=== PATIENT | female | born 1955 | race Caucasian/White ===

== ENCOUNTER → 2017-10-25 | Outpatient (CLI) | payer OTHER ==
[~2017-10-25] MED LIST: ATOR40TA PO; Cipro500 MG PO; Flomax0.4 MG PO; Hydrocodone-Ap1 EA23 PO; IBUP800 PO; METF500C PO; Percocet 5-3251 EACH PO; SULTRIDS PO; TAMS.4ER PO
== END | disposition home or self-care (01) ==
LOC: LAB SHORT 10:12 → PLD 10:12
DX: D48.5 Neoplasm of uncertain behavior of skin (principal)
CPT/HCPCS: 88305

== ENCOUNTER 2018-03-27 06:36 | Day surgery (SDC) | payer OTHER ==
[~2018-03-27] VITALS: Ht 167.6 cm; Wt 86.0 kg
[~2018-03-27 06:36] MED LIST changes: +Amaryl1 MG PO; +Crestor20 MG PO; +Glucophage1000 MG PO; +MELO7.5 PO
--- NOTE | 2018-03-27 08:34 | NUR ---
03/27/18 0834 Sandy Buchanan S 0823 OBSERVED SPLOTCHY PINK RASH ON RIGHT HIP WHILE TECH DOING PRESSURE. DR. SOLANO.
== END 2018-03-27 09:14 | disposition home or self-care (01) ==
LOC: ORSCSDS 06:36
PROVIDERS: Internal Medicine Gastroenterology
PROC: 0DBL8ZX Excision of Transverse Colon, Via Natural or Artificial Opening Endoscopic, Diagnostic (ICD-10-PCS; principal; 2018-03-27 08:00)
PROC: 0DBN8ZX Excision of Sigmoid Colon, Via Natural or Artificial Opening Endoscopic, Diagnostic (ICD-10-PCS; principal; 2018-03-27 08:00)
DX: Z12.11 Encounter for screening for malignant neoplasm of colon (principal); D12.3 Benign neoplasm of transverse colon; K63.5 Polyp of colon; E78.00 Pure hypercholesterolemia, unspecified; E11.9 Type 2 diabetes mellitus without complications; Z79.84 Long term (current) use of oral hypoglycemic drugs; Z79.899 Other long term (current) drug therapy
CPT/HCPCS: 82947; 88305; J0330; J1980; J2405; J7120

== ENCOUNTER → 2021-02-10 | Outpatient (CLI) | payer MEDICARE | END | disposition home or self-care (01) | LOC: LAB SHORT 10:27 | DX: L82.1 Other seborrheic keratosis (principal); L57.8 Other skin changes due to chronic exposure to nonionizing radiation; B88.0 Other acariasis | CPT/HCPCS: 88305 ==

== ENCOUNTER → 2021-08-29 | Outpatient (CLI) | payer MEDICARE | END | disposition home or self-care (01) | LOC: PLD 11:04 → LAB SHORT 11:04 | DX: D48.5 Neoplasm of uncertain behavior of skin (principal) | CPT/HCPCS: 88305 ==

== ENCOUNTER 2021-09-08 09:43 | Observation (INO) | payer MEDICARE ==
[~2021-09-08] VITALS: Ht 167.6 cm; Wt 80.5 kg
[2021-09-08 10:34] LABS: BASOPHILS ABSOLUTE AUTO 0.04 K/mm3 (0.00-0.23); BASOPHILS PERCENT AUTO 1 % (0-2); EOSINOPHILS ABSOLUTE AUTO 0.21 K/mm3 (0.00-0.68); EOSINOPHILS PERCENT AUTO 4 % (0-6); Hematocrit 34.6 % (33.0-51.0); Hemoglobin 11.8 g/dL (11.5-16.0); IMMATURE GRAN ABSOLUTE AUTO 0.01 K/mm3 (0.00-0.10); IMMATURE GRAN PERCENT AUTO 0 % (0-1); LYMPHOCYTES ABSOLUTE AUTO 1.67 K/mm3 (0.84-5.20); LYMPHOCYTES PERCENT AUTO 30 % (21-46); MONOCYTES PERCENT AUTO 11 % (4-13); Mean Corpuscular HGB 27.9 pg (26.0-34.0); Mean Corpuscular HGB Conc 34.1 g/dL (31.5-36.5); Mean Corpuscular Volume 82 fL (80-100); Mean Platelet Volume 9.4 fL (9.1-12.4); NEUTROPHILS ABSOLUTE AUTO 2.97 K/mm3 (1.96-9.15); NEUTROPHILS PERCENT AUTO 54 % (41-73); Platelet Count 234 K/mm3 (150-400); RDW Coefficient Variation 11.8 % (11.7-14.2); RDW Standard Deviation 34.9 fL (35.1-46.3); Red Blood Cell Count 4.23 M/mm3 (3.80-5.20)
[2021-09-08 10:58] LABS: Albumin, Blood 3.3 g/dL (3.4-5.0); Albumin/Globulin Ratio 1.1 (0.8-1.8); Bilirubin, Total 0.4 mg/dL (0.1-1.0); Bun/Creatinine Ratio 30.2 (12.0-20.0); Calcium, Blood 9.2 mg/dL (8.5-10.1); Creatinine, Blood 0.46 mg/dL (0.40-1.00); Globulin, Blood 3.1 g/dL (2.2-4.0); Potassium, Blood 3.7 mmol/L (3.5-5.5); Total Protein, Blood 6.4 g/dL (6.4-8.2)
[2021-09-08 11:30] LABS: Influenza A, PCR NEGATIVE (NEGATIVE); Influenza B, PCR NEGATIVE (NEGATIVE); Resp Syncytial Virus, PCR NEGATIVE (NEGATIVE); SARS-Cov-2 (COVID-19) PCR, MMC NEGATIVE (NEGATIVE)
--- NOTE | 2021-09-08 15:21 | NUR ---
ADMIT NOTE PATIENT ADMITTED FROM ER TO ROOM 305. PATIENT SETTLED INTO ROOM. PATIENT ORIENTED TO CALL LIGHT AND TV CONTROLS. MED REC DONE. ADMISSION COMPLETE. TALKED TO JEREMIAH IN NUCLEAR MEDICINE, STRESS TEST TOMORROW MORNING. NPO ORDERS. GAVE PATIENT SNACK.
--- NOTE | 2021-09-08 18:21 | NUR ---
SHIFT SUMMARY PATIENT DENIES PAIN, NAUSEA, AND SHORTNESS OF BREATH AT REST. PATIENT IS SOB WITH ACTIVITY. PATIENT IS SBA TO THE BATHROOM. PATIENT HAD VISITORS TODAY. PATIENT TO DO A STRESS TEST TOMORROW. PATIENT AWARE. ECHO COMPLETE. US OF NECK TO BE DONE STILL. PATIENT IS EATING AND DRINKING WELL. TELE RUNNING SR AT 82. PATIENT IS PLEASANT AND COOPERATIVE WITH CARE.
[2021-09-08 19:32] LABS: Free Thyroxine 2.09 ng/dL (0.70-1.60); Triiodothyronine, Free 7.24 pg/mL (2.18-3.98)
--- NOTE | 2021-09-09 03:57 | NUR ---
SHIFT SUMMARY PT HAD NO ACUTE CHANGES TO STATUS. PT SLEEPING OFF AND ON DURING THE NIGHT. PT WOKE WITH A HEADACHE AND WAS MEDICATED PER EMAR. PT GETS UP TO RESTROOM WITH NO ASSISTANCE. PT DID NOT SEEM SOB OR DIZZY AT ANY TIME WHILE UP TO RESTROOM. PT CONTINUES TO BE ON TELEMETRY. SINUS IN THE 70'S PER MONITOR. PT HAS CALL LIGHT WITHIN HER REACH AND HAS NO CURRENT COMPLAINTS.
[2021-09-09] MEDS ORDERED: LISI5 PO (18:23)
[2021-09-09] MEDS ORDERED: METHI10 PO (18:24)
[2021-09-09] MEDS ORDERED: Metoprolol Succ25 MG PO (18:24)
--- NOTE | 2021-09-09 19:17 | NUR ---
DISCHARGE PATIENT TRANSPORTED VIA WHEELCHAIR TO PRIVATE VEHICLE. DISCHARGE INSTRUCTIONS EXPLAINED TO PATIENT. PATIENT STATED UNDERSTANDING. PACKET SENT WITH PATIENT. BELONGINGS SENT WITH PATIENT. IV REMOVED WITHOUT DIFFICULTY BY LAUREN. TELE REMOVED WITHOUT DIFFICULTY. MEDICATIONS FAXED TO PREFERRED PHARMACY. [facility] TO SCHEDULE FOLLOW UP APPOINTMENT. PATIENT INFORMED OF NEED FOR OUTPATIENT THYROID SCAN.
== END 2021-09-09 18:49 | disposition home or self-care (01) ==
LOC: ER 09:43 → MEDS 09:44
PROVIDERS: Emergency Medicine; ADMIT Family Medicine
DX: E05.20 Thyrotoxicosis with toxic multinodular goiter without thyrotoxic crisis or storm (principal); E06.9 Thyroiditis, unspecified; E11.9 Type 2 diabetes mellitus without complications; M51.36 Other intervertebral disc degeneration, lumbar region; I11.0 Hypertensive heart disease with heart failure; I50.30 Unspecified diastolic (congestive) heart failure; E78.5 Hyperlipidemia, unspecified; Z88.5 Allergy status to narcotic agent; Z20.822 Contact with and (suspected) exposure to COVID-19
CPT/HCPCS: 0241U; 36415; 71045; 76536; 78452; 80053; 83880; 84439; 84443; 84481; 84484; 85025; 93005; 93010; 93017; 93306; 99285-25; A9270; A9500; J0706; J1650; J2785

== ENCOUNTER 2021-09-14 13:40 | Emergency (ER) | payer MEDICARE ==
[~2021-09-14] VITALS: Ht 167.6 cm; Wt 81.2 kg
[~2021-09-14 13:40] MED LIST changes: +LISI5 PO; +METHI10 PO; +Metoprolol Succ25 MG PO
[2021-09-14 14:22] LABS: BASOPHILS ABSOLUTE AUTO 0.05 K/mm3 (0.00-0.23); BASOPHILS PERCENT AUTO 1 % (0-2); EOSINOPHILS ABSOLUTE AUTO 0.27 K/mm3 (0.00-0.68); EOSINOPHILS PERCENT AUTO 4 % (0-6); Hematocrit 37.3 % (33.0-51.0); Hemoglobin 12.8 g/dL (11.5-16.0); IMMATURE GRAN ABSOLUTE AUTO 0.01 K/mm3 (0.00-0.10); IMMATURE GRAN PERCENT AUTO 0 % (0-1); LYMPHOCYTES ABSOLUTE AUTO 1.88 K/mm3 (0.84-5.20); LYMPHOCYTES PERCENT AUTO 28 % (21-46); MONOCYTES ABSOLUTE AUTO 0.55 K/mm3 (0.16-1.47); MONOCYTES PERCENT AUTO 8 % (4-13); Mean Corpuscular HGB 27.9 pg (26.0-34.0); Mean Corpuscular HGB Conc 34.3 g/dL (31.5-36.5); Mean Corpuscular Volume 81 fL (80-100); Mean Platelet Volume 9.6 fL (9.1-12.4); NEUTROPHILS ABSOLUTE AUTO 3.97 K/mm3 (1.96-9.15); NEUTROPHILS PERCENT AUTO 59 % (41-73); Platelet Count 245 K/mm3 (150-400); RDW Coefficient Variation 11.8 % (11.7-14.2); RDW Standard Deviation 34.6 fL (35.1-46.3); Red Blood Cell Count 4.58 M/mm3 (3.80-5.20); White Blood Cell Count 6.73 K/mm3 (4.00-11.30)
[2021-09-14 14:37] LABS: Albumin, Blood 3.5 g/dL (3.4-5.0); Albumin/Globulin Ratio 1.1 (0.8-1.8); Bilirubin, Total 0.4 mg/dL (0.1-1.0); Bun/Creatinine Ratio 34.3 (12.0-20.0); Calcium, Blood 9.6 mg/dL (8.5-10.1); Creatinine, Blood 0.47 mg/dL (0.40-1.00); Globulin, Blood 3.1 g/dL (2.2-4.0); Total Protein, Blood 6.6 g/dL (6.4-8.2)
[2021-09-14 14:40] LABS: Source, Urine Clean Catch
[2021-09-14 15:39] LABS: Appearance, Urine Clear (Clear); Bilirubin, Urine Neg (Neg); Blood, Urine 4+ (Neg); Glucose Qualitative, Urine Neg (Neg); Ketones, Urine Neg (Neg); Leukocyte Esterase, Urine Neg (Neg); Nitrite, Urine Neg (Neg); Protein, Urine Neg (Neg); Urobilinogen, Urine NORM (Normal)
[2021-09-14 15:46] LABS: Color, Urine Pale Yellow (P-Yellow)
[2021-09-14 16:05] LABS: Bacteria Rare /hpf; Squamous Epithelial Cells Rare /hpf (Few); Transitional Epithelial Cells Few /hpf (0-Rare); White Blood Cells, Urine 0-2 /hpf (0-5)
[2021-09-14] MEDS ORDERED: TAMS.4ER PO (17:22)
== END 2021-09-14 17:38 | disposition home or self-care (01) ==
LOC: ER 13:40
PROVIDERS: Emergency Medicine
DX: N13.2 Hydronephrosis with renal and ureteral calculous obstruction (principal); E78.5 Hyperlipidemia, unspecified; E05.00 Thyrotoxicosis with diffuse goiter without thyrotoxic crisis or storm; E11.9 Type 2 diabetes mellitus without complications; Z79.84 Long term (current) use of oral hypoglycemic drugs; Z88.5 Allergy status to narcotic agent; Z79.899 Other long term (current) drug therapy
CPT/HCPCS: 36415; 74176; 80053; 81001; 83690; 85025; J7030

== ENCOUNTER → 2021-12-21 | Outpatient (CLI) | payer MEDICARE ==
[2021-12-21 13:35] LABS: BASOPHILS ABSOLUTE AUTO 0.05 K/mm3 (0.00-0.23); BASOPHILS PERCENT AUTO 1 % (0-2); EOSINOPHILS ABSOLUTE AUTO 0.11 K/mm3 (0.00-0.68); EOSINOPHILS PERCENT AUTO 2 % (0-6); Hematocrit 38.1 % (33.0-51.0); Hemoglobin 13.1 g/dL (11.5-16.0); IMMATURE GRAN ABSOLUTE AUTO 0.01 K/mm3 (0.00-0.10); IMMATURE GRAN PERCENT AUTO 0 % (0-1); LYMPHOCYTES ABSOLUTE AUTO 1.56 K/mm3 (0.84-5.20); LYMPHOCYTES PERCENT AUTO 25 % (21-46); MONOCYTES ABSOLUTE AUTO 0.51 K/mm3 (0.16-1.47); MONOCYTES PERCENT AUTO 8 % (4-13); Mean Corpuscular HGB 28.5 pg (26.0-34.0); Mean Corpuscular HGB Conc 34.4 g/dL (31.5-36.5); Mean Corpuscular Volume 83 fL (80-100); Mean Platelet Volume 9.2 fL (9.1-12.4); NEUTROPHILS ABSOLUTE AUTO 4.03 K/mm3 (1.96-9.15); NEUTROPHILS PERCENT AUTO 64 % (41-73); Platelet Count 229 K/mm3 (150-400); RDW Coefficient Variation 13.9 % (11.7-14.2); RDW Standard Deviation 41.3 fL (35.1-46.3); Red Blood Cell Count 4.59 M/mm3 (3.80-5.20); White Blood Cell Count 6.27 K/mm3 (4.00-11.30)
[2021-12-21 13:53] LABS: Alanine Aminotransfer (ALT/SGP 32 U/L (12-78); Albumin, Blood 3.8 g/dL (3.4-5.0); Albumin/Globulin Ratio 1.2 (0.8-1.8); Alk Phos 54 U/L (40-126); Anion Gap 7 mmol/L (6-16); Aspartate Aminotrans (AST/SGOT 15 U/L (12-37); Bilirubin, Total 0.4 mg/dL (0.1-1.0); Blood Urea Nitrogen 13 mg/dL (8-24); Bun/Creatinine Ratio 18.3 (12.0-20.0); CO2, Blood 29 mmol/L (21-32); Calcium, Blood 9.3 mg/dL (8.5-10.1); Chloride, Blood 106 mmol/L (98-108); Creatinine, Blood 0.71 mg/dL (0.40-1.00); Free Thyroxine 1.13 ng/dL (0.70-1.60); Globulin, Blood 3.1 g/dL (2.2-4.0); Glomerular Filtration Rate 93 (60-); Glucose, Blood 159 mg/dL (70-99); Potassium, Blood 4.1 mmol/L (3.5-5.5); Sodium, Blood 142 mmol/L (136-145); Total Protein, Blood 6.9 g/dL (6.4-8.2)
[2021-12-21 13:54] LABS: Thyroid Stimulating Hormone <0.007 uIU/mL (0.360-4.800)
== END | disposition home or self-care (01) ==
LOC: LAB 13:30 → LAB SHORT 13:30
PROVIDERS: Chiropractor
DX: E05.00 Thyrotoxicosis with diffuse goiter without thyrotoxic crisis or storm (principal); R06.09 Other forms of dyspnea
CPT/HCPCS: 80053; 84439; 84443; 85025

== ENCOUNTER 2022-12-13 08:20 | Day surgery (SDC) | payer MEDICARE ==
[~2022-12-13] VITALS: Ht 167.6 cm; Wt 75.9 kg
[2022-12-13] VITALS (16 sets, daily range): BP systolic 90–127; BP diastolic 42–91
[~2022-12-13 08:20] MED LIST changes: +ASPI81CH PO; +ESCI20 PO
--- NOTE | 2022-12-13 09:56 | NUR ---
PRE-OP NOTE PT A&OX4, BREATHING RA, NO COMPLAINTS, DAUGHTER AT BEDSIDE. PT BELONGINGS STORED BELOW STRETCHER, GLASSES TO PACU. PT HAS WEDDING RING IN PLACE THAT DOES NOT COME OFF- RELEASE SIGNED. Patient confirms NPO status and agrees with scheduled surgery.PT AMBULATES UNSTEADLY C CANE. Pre-Op teaching done. Pt verbalizes understanding.
--- NOTE | 2022-12-13 14:09 | NUR ---
PATIENT ARRIVED FROM PACU TODAY. POD 0 LEFT TOTAL HIP PATIENT IS DROWSY BUT IS A&OX4 AND RESPONDS TO VERBAL STIMULI. VS ARE WNL AND IS ON RA. HER LEFT HIP HAS X3 GAUZE WITH TAPE THAT ARE C/D/I. SHE HAD A SPINAL DURING THE PROCEDURE BUT ARRIVED TO THE FLOOR WITH FULL SENSATION AND DENIES NUMBNESS AND TINGLING THROUGHOUT. POLAR PACK IN PLACE ON LEFT HIP. DAUGHTER AT BEDSIDE. CALL LIGHT WITHIN REACH.
--- NOTE | 2022-12-13 17:00 | NUR ---
SHIFT SUMMARY: POD 0 LEFT TOTAL HIP- POSTERIOR PATIENT IS A&OX4. VS ARE WNL AND IS ON RA. PAIN IS MANAGED WITH PO TYLENOL AND IV TORADOL. HER LEFT HIP HAS X3 GAUZE WITH TAPE THAT ARE C/D/I. SHE DENIES NUMBNESS OR TINGLING THROUGHOUT ALL EXTREMITIES. CAN MOVE ALL FINGERS AND TOES WHEN ASKED. SHE IS TOLERATING PO INTAKE. PATIENT WAS ABLE TO WORK WITH PHYSICAL THERAPY ONCE THIS SHIFT. PATIENT IS IN THE RECLINER WITH LEGS ELEVATED AND POLAR PACK IN PLACE. CALL LIGHT WITHIN REACH.
[2022-12-14 00:19] VITALS: BP 102/46
--- NOTE | 2022-12-14 05:13 | NUR ---
SHIFT SUMMARY POD1, L JASWINDER W/ POSTERIOR PRECAUTIONS, 3 GAUZE/ PRESSURE TAPE DRESSINGS C/D/I. IV TO R FA SL, PT A&OX4, PLEASANT AND COOPERATIVE. UP TO BATHROOM X2 THIS SHIFT W/ FWW AND STAFF ASSIST. PT DENIES PAIN T/O SHIFT, ADULT BRIEFS PLACED PER PT REQUEST FOR URGENCY INCONTINENCE. NO ACUTE CHANGES THIS SHIFT, PT REPORTS NO PAIN. CALL LIGHT W/IN REACH
[2022-12-14 05:21] LABS: BASOPHILS ABSOLUTE AUTO 0.02 K/mm3 (0.00-0.23); BASOPHILS PERCENT AUTO 0 % (0-2); EOSINOPHILS PERCENT AUTO 0 % (0-6); Hematocrit 30.1 % (33.0-51.0); Hemoglobin 10.2 g/dL (11.5-16.0); IMMATURE GRAN ABSOLUTE AUTO 0.05 K/mm3 (0.00-0.10); IMMATURE GRAN PERCENT AUTO 0 % (0-1); LYMPHOCYTES ABSOLUTE AUTO 0.85 K/mm3 (0.84-5.20); LYMPHOCYTES PERCENT AUTO 7 % (21-46); MONOCYTES ABSOLUTE AUTO 0.98 K/mm3 (0.16-1.47); MONOCYTES PERCENT AUTO 8 % (4-13); Mean Corpuscular HGB 30.4 pg (26.0-34.0); Mean Corpuscular HGB Conc 33.9 g/dL (31.5-36.5); Mean Corpuscular Volume 90 fL (80-100); Mean Platelet Volume 9.5 fL (9.1-12.4); NEUTROPHILS ABSOLUTE AUTO 10.55 K/mm3 (1.96-9.15); NEUTROPHILS PERCENT AUTO 85 % (41-73); Platelet Count 194 K/mm3 (150-400); RDW Coefficient Variation 12.3 % (11.7-14.2); RDW Standard Deviation 40.1 fL (35.1-46.3); Red Blood Cell Count 3.36 M/mm3 (3.80-5.20); White Blood Cell Count 12.45 K/mm3 (4.00-11.30)
[2022-12-14 05:40] LABS: Bun/Creatinine Ratio 23.6 (12.0-20.0); Calcium, Blood 8.8 mg/dL (8.5-10.1); Creatinine, Blood 0.76 mg/dL (0.40-1.00); Magnesium, Blood 2.1 mg/dL (1.6-2.4); Potassium, Blood 4.4 mmol/L (3.5-5.5)
[2022-12-14 07:12] VITALS: BP 109/48
[2022-12-14 07:13] VITALS: BP 93/50
[2022-12-14] MEDS ORDERED: ASPI81CH PO (07:30)
[2022-12-14] MEDS ORDERED: OXYC5 PO (07:31)
[2022-12-14] MEDS ORDERED: SULTRIDS PO (07:32)
[2022-12-14] MEDS ORDERED: PROM25 PO (07:32)
--- NOTE | 2022-12-14 12:17 | NUR ---
DISCHARGE NOTE: PATIENT AND PATIENTS DAUGHTER WERE EDUCATED ON DISCHARGE INSTRUCTIONS. BOTH VERBALIZED UNDERSTANDING OF INSTRUCTIONS AND HAD NO FURTHER QUESTIONS AT THIS TIME. IV WAS TAKEN OUT AND WNL. PAIN IS MANAGED WITH PO PAIN MEDS. PATIENTS LEFT HIP HAS X3 AQUACELS THAT ARE C/D/I. DENIES NUMBNESS OR TINGLING THROUGHOUT. PATIENT IS TOLERATING PO INTAKE AND IS VOIDING. SHE IS A SBA WITH FWW AND GAIT BELT. PATIENT IS DRESSED AND HAS PERSONAL ITEMS IN THE ROOM GATHERED. SHE IS BEING WHEELCHAIRED OUT TO HER DAUGHTERS CAR TO BE TAKEN HOME.
--- NOTE | 2022-12-14 14:22 | NUR ---
12/14/22 1422 Rosanna Torres VERIFICATIONS: EDIT CHART.
== END 2022-12-14 12:39 | disposition home or self-care (01) ==
LOC: ORSCMMR 08:20 → ORD 11:00 → SURS 13:54 → ORSCMMR 12-14 12:39
PROVIDERS: Orthopaedic Surgery
PROC: 0SRB0JA Replacement of Left Hip Joint with Synthetic Substitute, Uncemented, Open Approach (ICD-10-PCS; principal; 2022-12-13 11:00)
DX: M16.12 Unilateral primary osteoarthritis, left hip (principal); E11.9 Type 2 diabetes mellitus without complications; E05.00 Thyrotoxicosis with diffuse goiter without thyrotoxic crisis or storm; Z79.899 Other long term (current) drug therapy; Z79.82 Long term (current) use of aspirin; Z79.84 Long term (current) use of oral hypoglycemic drugs
CPT/HCPCS: 36415; 72170; 80048; 82947; 83735; 85025; 97110; 97116; 97161; 97165; 97530; 97535; A9270; C1713; C1776; J0171; J0690; J0735; J1100; J1815; J1885; J2371; J2405; J2704; J2795; J3010; J7120

== ENCOUNTER → 2023-06-05 | Outpatient (CLI) | payer MEDICARE ==
[~2023-06-05] MED LIST changes: +OXYC5 PO; +PROM25 PO
== END | disposition home or self-care (01) ==
LOC: LAB 11:49 → LAB SHORT 11:49
DX: L08.0 Pyoderma (principal)
CPT/HCPCS: 87070; 87205